=== PATIENT | female | born 2000 | race Caucasian/White ===

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

== ENCOUNTER 2018-01-23 12:17 | Emergency (ER) | payer OTHER ==
[~2018-01-23] VITALS: Ht 154.9 cm; Wt 101.7 kg
[2018-01-23 12:27] VITALS: TEMP 36.9; Ht 154.9 cm; Wt 101.7 kg
[2018-01-23] MEDS ORDERED: CIPROFLOXACIN 500 MG TAB PO STA (12:42)
[2018-01-23] MEDS ORDERED: LIDOCAINE 1% BUFFERED INJ 5 ML VIAL INFIL ONE (12:45)
[2018-01-23] MEDS ORDERED: CLINDAMYCIN HCL 150 MG CAP PO ONE (12:45)
[2018-01-23] MEDS ORDERED: CLIN300C2 PO (13:03)
[2018-01-23] MEDS ORDERED: CIPR-255 PO (13:03)
[2018-01-23 13:24] VITALS: BP 142/90; PULSE 91; O2SAT 96
--- NOTE | 2018-01-23 16:08 | EMERGENCY ROOM VISIT NOTE ---
History First contact with patient: 12:28 Chief Complaint: BITE Stated Complaint: BIT BY [place] ON RT KNEE AND LT ARM History of Present Illness The patient is a 17 year old female who presents to the Emergency Room with family for evaluation of a dog bite to the right knee and left arm. The patient reports that she and her family were watching the neighbor's pit bull while they were out of town. When she tried to go into the house to feed the dog, she was bitten. She was able to contact the protocol manager who reports that the dog is up-to-date on its immunizations. The patient's tetanus immunization is up-to-date. The patient rates her overall discomfort a 7 out of 10. She denies any paresthesias or numbness of the left upper or right lower extremity. Review of Systems 10 system review was performed and was negative except for pertinent positives and negatives as indicated in history of present illness Past Medical/Surgical History Medical Problems: (1) Hypercholesterolemia (2) Hypertension Nos (3) Hypothyroidism, Unspecified (4) Obesity, Nos (5) Oligomenorrhea, unspecified (6) Polycystic Ovarian Syndrome (7) Type 2 Diabetes Mellitus Without Complications Family History Unremarkable Social History Smoking Status: Never Smoker Alcohol Use: none Marital Status: single Housing Status: lives with family Current/Historical Medications Scheduled Ciprofloxacin Hcl (Cipro), 500 MG PO BID Clindamycin Hcl (Cleocin), 300 MG PO QID Physical Exam Vital Signs Date Time Temp Pulse Resp B/P (MAP) Pulse Ox O2 Delivery O2 Flow Rate FiO2 01/23/18 13:24 91 20 142/90 96 01/23/18 12:27 36.9 126 24 139/95 100 Room Air Physical Exam CONSTITUTIONAL: Healthy and well nourished. Alert and oriented X 3 with positive affect. Patient is very anxious. She does not appear in any significant discomfort. HEENT: Normocephalic, atraumatic. Pupils equal, round and reactive. NECK: Full active range of motion without discomfort. MUSCULOSKELETAL: Examination shows 2 deep lacerations on the left posterior forearm. The largest laceration is 2 cm in length and has fat protrusion. There is also an adjacent 1 cm laceration that is into the underlying subcutaneous space. Patient has no worsening pain with flexion, extension, pronation or supination of the wrist, forearm and elbow. Capillary refill of the fingers is less than 2 seconds. Examination of the right anterior knee shows deep abrasions and a small puncture wound that will not require primary closure. The patient ambulates without antalgic gait. No joint effusion noted. INTEGUMENTARY: No rash or other significant dermatologic conditions noted. NEUROLOGIC: Upper and lower extremities are sensory intact. Medical Decision & Procedures Laboratory Results Test 01/23/18 12:27 Bedside Glucose 171 mg/dl (70-90) Medications Administered Medications (Trade) Dose Ordered Sig/Eduin Route Start Time Stop Time Status Last Admin Dose Admin Clindamycin HCl (Cleocin Cap) 300 mg NOW ONCE PO 01/23/18 12:45 01/23/18 12:46 DC 01/23/18 12:55 300 MG Ciprofloxacin (Cipro Tab) 500 mg NOW STAT PO 01/23/18 12:42 01/23/18 12:45 DC 01/23/18 12:55 500 MG Procedure Wound probing and laceration repair of the left forearm was performed under local anesthesia after receiving verbal consent from the patient. Using buffered 1% lidocaine without epinephrine, good local anesthesia was administered. The wounds were then peripherally cleansed with iodine, then copiously pressure irrigated with a total of 150 cc of normal saline. Exploration of the wounds does not show any obvious underlying foreign bodies. The wounds were then grossly approximated using 4-0 nylon simple interrupted sutures. Bacitracin dressings were applied to the left forearm and right knee. ED Course Patient history and physical exam were performed. Nurse's notes were reviewed. Vital signs were reviewed and were normal. The patient refused any analgesics. The patient was able to contact the dog's protocol manager to verify that the dog is up-to-date on its immunizations. The patient was administered clindamycin and Cipro for antibiotic coverage. The father is also present and reports that she has an anaphylactic reaction to penicillin and all of its derivatives. The patient does have significant gaping of the wounds on her left forearm, therefore I suggested gross approximation using sutures. The patient and family deferred x-rays of the arm to rule out underlying bony injury or radiopaque foreign bodies. Laceration repair was performed under local anesthesia. The patient will be provided prescriptions for clindamycin and Cipro. The patient was instructed to watch for any signs of developing infection. Suture removal in 12-14 days, or return to the emergency department sooner with any signs of infection. She was encouraged to take Motrin and Tylenol as needed for pain. The patient and family were happy with plan of care , voiced understanding of all discharge instructions, and the patient rated her discomfort a 2 out of 10 at the conclusion of my exam. Medical Decision Medication Reconcilliation Current Medication List: was personally reviewed by me Blood Pressure Screening Patient's blood pressure: Normal blood pressure Impression Primary Impression: Dog bite of arm Additional Impression: Dog bite of right knee Departure Information Dispostion Home / Self-Care Prescriptions Ciprofloxacin Hcl (CIPRO) 500 Mg Tab 500 MG PO BID for 5 Days, #10 TAB Prov: Shahram Carmen PA 01/23/18 Clindamycin Hcl (CLEOCIN) 300 Mg Cap 300 MG PO QID for 5 Days, #20 CAP Prov: Shahram Carmen PA 01/23/18 Referrals Earl Oneill III, CRNP (PCP) No Doctor, Assigned Forms HOME CARE DOCUMENTATION FORM, IMPORTANT VISIT INFORMATION Patient Instructions My [facility] Additional Instructions Keep wound clean and covered with an antibiotic ointment and dressing. Suture removal in 12-14 days. Complete all clindamycin and Cipro antibiotics as prescribed. Ibuprofen 800 mg and/or Tylenol 1000 mg every 8 hours. You may also alternate these medications for more effective pain relief: Ibuprofen --4 HRS--> Tylenol --4 HRS--> ibuprofen --4 HRS--> Tylenol .... Return to the emergency department for any signs of developing infection or other concerns. Problem Qualifiers Primary Impression: Dog bite of arm Encounter type: initial encounter Laterality: left Qualified Codes: S41.152A - Open bite of left upper arm, initial encounter; W54.0XXA - Bitten by dog, initial encounter Additional Impression: Dog bite of right knee Encounter type: initial encounter Qualified Codes: S81.051A - Open bite, right knee, initial encounter; W54.0XXA - Bitten by dog, initial encounter
== END 2018-01-23 13:26 | disposition home or self-care (01) ==
LOC: C.EDB 12:18 → C.EDD 13:26
DX: S51.852A Open bite of left forearm, initial encounter (principal); S81.051A Open bite, right knee, initial encounter; W54.0XXA Bitten by dog, initial encounter; Y92.019 Unspecified place in single-family (private) house as the place of occurrence of the external cause